=== PATIENT | female | born 1980 | race African-American/Black ===

== ENCOUNTER 2016-12-14 07:08 | Emergency (ER) | payer OTHER, MEDICAID ==
[~2016-12-14] VITALS: Ht 165.1 cm; Wt 60.0 kg
[~2016-12-14 07:08] MED LIST: CIPR500T2 PO; Z.0.NO CURRENT MEDS
[2016-12-14 07:14] VITALS: BP 120/76; PULSE 60; RESP 16; TEMP 98.8; O2SAT 99
--- NOTE | 2016-12-14 08:22 | PD ---
HPI Chief Complaint: GI Complaint Time Seen by Provider: 08:06 Travel History International Travel<30 days: No Contact w/Intl Traveler<30days: No Traveled to known affect area: No History of Present Illness HPI This is a 36-year-old female who presents to the emergency department with 3 days of nausea and vomiting, constant, moderate severity associated with some lightheadedness and dizziness when she walks. She says she could be but she says on Sunday she had what she thought was her menstrual cycle and has been spotting since. She has a little bit of pressure in her lower abdomen. She denies any dysuria, diarrhea, fevers or chills. She's not been around anyone else sick. [facility] Past Medical History Medical History: Denies Significant Hx Influenza Vaccination: No ?: Unknown LMP: SPOTTING NOW Past Surgical History Surgical History: No Previous Surgery Social History Alcohol Use: Yes (OCCASIONAL) Tobacco Use: No Substance Use: Yes (MARIJUANA) Allergies-Medications (Allergen,Severity, Reaction): Coded Allergies: No Known Allergies (Verified , 12/14/16) Reported Meds & Prescriptions Reported Meds & Active Scripts Active Review of Systems Except as stated in HPI: all other systems reviewed are Neg Physical Exam Narrative GENERAL:Well appearing, no acute distress SKIN: Focused skin assessment warm and dry. HEAD: Atraumatic. Normocephalic. EYES: Pupils equal and round. No injection or drainage. ENT: Moist mucous membranes NECK: Trachea midline. CARDIOVASCULAR: Regular rate and rhythm. No murmur appreciated. RESPIRATORY: Clear to auscultation. Breath sounds equal bilaterally. GASTROINTESTINAL: Abdomen soft, mildly tender to palpation in the lower abdomen with no rebound/guarding. MUSCULOSKELETAL: No obvious deformities. NEUROLOGICAL: Awake and alert. No obvious cranial nerve deficits. Moving all extremities. PSYCHIATRIC: Appropriate mood and affect; insight and judgment normal. Data Data Last Documented VS Vital Signs Date Time Temp Pulse Resp B/P (MAP) Pulse Ox O2 Delivery O2 Flow Rate FiO2 12/14/16 07:14 98.8 60 16 120/76 (91) 99 Room Air Orders Orders Complete Blood Count With Diff (12/14/16 08:16) Comprehensive Metabolic Panel (12/14/16 08:16) ^ Insert Iv (12/14/16 08:16) Beta Hcg (Quant/Titer) (12/14/16 08:16) Urinalysis - C+S If Indicated (12/14/16 08:16) Ondansetron Inj (Zofran Inj) (12/14/16 08:30) Sodium Chlor 0.9% 1000 Ml Inj (Ns 1000 M (12/14/16 08:30) Urine Culture (12/14/16 08:10) Us Pelvis (Ques Pr/Ect)W Trans (12/14/16 ) Labs Laboratory Tests Test 12/14/16 08:10 12/14/16 08:20 Urine Collection Type CLEAN CATCH Urine Color YELLOW Urine Turbidity SLIGHT Urine pH 6.0 Urine Specific [place] 1.028 Urine Protein 30 mg/dL Urine Glucose (UA) NEG mg/dL Urine Ketones 80 OR GREATER mg/dL Urine Occult Blood LARGE Urine Nitrite NEG Urine Bilirubin NEG Urine Leukocyte Esterase TRACE Urine RBC 15-19 /hpf Urine WBC 3-5 /hpf Urine Squamous Epithelial Cells > 8 /hpf Urine Bacteria MANY /hpf Microscopic Urinalysis Comment CULTURE INDICATED Urine Collection Time 08:10 White Blood Count 6.7 TH/MM3 Red Blood Count 3.90 MIL/MM3 Hemoglobin 12.0 GM/DL Hematocrit 36.4 % Mean Corpuscular Volume 93.3 FL Mean Corpuscular Hemoglobin 30.8 PG Mean Corpuscular Hemoglobin Concent 33.0 % Red Cell Distribution Width 12.4 % Platelet Count 152 TH/MM3 Mean Platelet Volume 9.4 FL Neutrophils (%) (Auto) 50.9 % Lymphocytes (%) (Auto) 36.7 % Monocytes (%) (Auto) 9.4 % Eosinophils (%) (Auto) 1.4 % Basophils (%) (Auto) 1.6 % Neutrophils # (Auto) 3.5 TH/MM3 Lymphocytes # (Auto) 2.4 TH/MM3 Monocytes # (Auto) 0.6 TH/MM3 Eosinophils # (Auto) 0.1 TH/MM3 Basophils # (Auto) 0.1 TH/MM3 CBC Comment DIFF FINAL Differential Comment Blood Urea Nitrogen 11 MG/DL Creatinine 0.88 MG/DL Random Glucose 89 MG/DL Total Protein 8.1 GM/DL Albumin 4.0 GM/DL Calcium Level 8.8 MG/DL Alkaline Phosphatase 50 U/L Aspartate Amino Transf (AST/SGOT) 13 U/L Alanine Aminotransferase (ALT/SGPT) 11 U/L Total Bilirubin 1.5 MG/DL Sodium Level 137 MEQ/L Potassium Level 3.0 MEQ/L Chloride Level 104 MEQ/L Carbon Dioxide Level 22.1 MEQ/L Anion Gap 11 MEQ/L Estimat Glomerular Filtration Rate 89 ML/MIN Human Chorionic Gonadotropin, Quant 58731 MIU/ML MDM Medical Decision Making Medical Screen Exam Complete: Yes Emergency Medical Condition: Yes Interpretation(s) afebrile, no tachycardia, normotensive no leukocytosis mild hypokalemia total bilirubin 1.5 likely normal in the setting of hcg 48720 Last 24 hours Impressions Pelvis Ultrasound 12/14/16 0000 Signed Impressions: Service Date/Time: November 08:25 - CONCLUSION: 1. Single early intrauterine corresponding to an approximate 5 weeks six-day menstrual age. No heartbeat could be identified despite repeated imaging. 2. Complex cyst in left ovary most consistent with a corpus luteal cyst. Nicola Henderson MD Differential Diagnosis , ectopic , threatened miscarriage, incomplete miscarriage, complete miscarriage, gastritis, pancreatitis, appendicitis Narrative Course This is a 36-year-old female who presents to the emergency department with nausea and vomiting. She had vaginal bleeding 2 days ago and has had spotting since. She was placed on a monitor and an IV was established. Labs are obtained which demonstrate some hypokalemia and elevated total bilirubin which is likely normal in . HCG is 24,000. A pelvic ultrasound was obtained which demonstrates an intrauterine with no heart rate of about 5 weeks 6 days. Blood type was drawn. Patient has insurance through the [employer]. I recommended that she follow-up with them. If she has trouble asked her to return to the emergency department in a week for repeat ultrasound. She was also given information regarding [facility]. Diagnosis Primary Impression: Threatened miscarriage Patient Instructions: General Instructions Additional Instructions: You have been diagnosed with a threatened miscarriage. If you develop severe abdominal pain, fever, persistent vomiting or inability to eat, heavy vaginal bleeding using more than one pad an hour, lightheadedness , dizziness, chest pain or shortness of breath return to the emergency department immediately. Followup with your automotive designer as soon as possible. Take Tylenol as needed for pain. Follow up with [facility] at: Follow up with: [facility] [address] [facility] [place] [address] Office Hours Sunday - 9:00 am - 5:30 pm Sunday 8:00 am - 12:00 pm Tuesdays 4:00 - 6:30 pm Med/Other Pt SpecificInfo: Prescription(s) given Scripts Ondansetron Odt (Zofran Odt) 4 Mg Tab 4 MG SL Q6HR Y for Nausea/Vomiting, #15 TAB 0 Refills Prov: Eboni Moise MD 12/14/16 Disposition: 01 DISCHARGE HOME Condition: Stable Eboni Moise MD Dec 14, 2016 08:22
[2016-12-14] MEDS ORDERED: ONDANSETRON HCL 4 MG/2 ML VIAL IV PUSH ONE (08:30)
[2016-12-14] MEDS ORDERED: SODIUM CHLOR 0.9% 1000 ML INJ 1,000 ML IV ONE (08:30)
[2016-12-14 08:32] LABS: BLOOD, URINE LARGE (NEG); GLUCOSE,URINE NEG (NEG); KETONE, URINE 80 OR GREATER mg/dL (NEG); NITRITE,URINE NEG (NEG)
[2016-12-14 08:35] LABS: AUTOMATED NEUTROPHIL # 3.5 TH/MM3 (1.8-7.7); BASOPHIL # 0.1 TH/MM3 (0-0.2); BASOPHIL % 1.6 % (0.0-2.0); EOSINOPHIL # 0.1 TH/MM3 (0-0.4); EOSINOPHIL % 1.4 % (0.0-4.0); HEMATOCRIT 36.4 % (35.0-46.0); HEMO FLAGS DIFF FINAL; LYMPH % 36.7 % (9.0-44.0); LYMPHOCYTE # 2.4 TH/MM3 (1.0-4.8); MEAN CELL VOLUME 93.3 FL (80.0-100.0); MEAN CORPUSCULAR HEMOGLOBIN 30.8 PG (27.0-34.0); MONO % 9.4 % (0.0-8.0); NEUT % 50.9 % (16.0-70.0); PLATELET COUNT 152 TH/MM3 (150-450); RED CELL DISTRIBUTION WIDTH 12.4 % (11.6-17.2); WHITE BLOOD COUNT 6.7 TH/MM3 (4.0-11.0)
[2016-12-14 08:42] LABS: CHLORIDE 104 MEQ/L (98-107); SODIUM (NA) 137 MEQ/L (136-145)
[2016-12-14 08:45] LABS: ANION GAP 11 MEQ/L (5-15); BICARBONATE 22.1 MEQ/L (21.0-32.0); BLOOD UREA NITROGEN 11 MG/DL (7-18)
[2016-12-14 08:47] LABS: METHOD OF COLLECTION CLEAN CATCH; URINE COLOR YELLOW (YELLW/STRAW)
[2016-12-14 08:48] LABS: ALT (GPT) 11 U/L (10-53); AST (GOT) 13 U/L (15-37)
[2016-12-14 08:48] LABS: RBC, URINE 15-19 /hpf (0-3)
[2016-12-14 08:49] LABS: BACTERIA, URINE MANY /hpf; COMMENT (UR) CULTURE INDICATED; CULTURE IF INDICATED CULTURE INDICATED; SQUAMOUS EPITHELIAL CELL URINE > 8 /hpf (0-5)
[2016-12-14 08:49] LABS: GLOMERULAR FILTRATION RATE 89 ML/MIN (>89)
[2016-12-14 08:50] LABS: TOTAL BILIRUBIN ADULT 1.5 MG/DL (0.2-1.0)
[2016-12-14 08:51] LABS: ALKALINE PHOSPHATASE 50 U/L (45-117)
[2016-12-14 09:07] LABS: BETA HCG QUANT 24965 MIU/ML (0-5)
--- NOTE | 2016-12-14 09:34 | RADRPT ---
EXAM DATE/TIME: 12/14/2016 08:25 [facility] COMPARISON: No previous studies available for comparison. INDICATIONS : Vaginal bleeding. LAB(S): Beta-hC,965 MEDICAL HISTORY : . SURGICAL HISTORY : None. ENCOUNTER: Initial ACUITY: 1 day PAIN SCORE: 3/10 LOCATION: Bilateral pelvis MEASUREMENTS: UTERUS: 8.8 x 4.5 x 6.8 cm ENDOMETRIAL STRIPE: 11 mm RIGHT OVARY: 2.5 x 2.0 x 2.4 cm LEFT OVARY: 3.1 x 2.9 x 3.0 cm FREE FLUID: Yes cul-de-sac. CROWN RUMP LENGTH: 0.3 cm = 5 WKS 6 DAYS FHR: Unable to visualize. BPM FINDINGS: UTERUS: There is a single early intrauterine present. The crown rump length corresponds to approxim ately 5 weeks six-day menstrual age. No heartbeat could be identified despite repeated imaging. The gestational sac appeared mildly irregular. RIGHT OVARY: Ovary contains no mass or significant cystic lesion. LEFT OVARY: There is a hypoechoic cystic lesion measuring 1.9 x 2 x 2.8 cm. MISCELLANEOUS: Minimal fluid is present in the cul-de-sac. CONCLUSION: 1. Single early intrauterine corresponding to an approximate 5 weeks six-day menstrual age. No heartbeat could be identified despite repeated imaging. 2. Complex cyst in left ovary most consistent with a corpus luteal cyst. Nicola Henderson MD on December 14, 2016 at 9:29 Board Certified Radiologist. This report was verified electronically.
[2016-12-14] MEDS ORDERED: ZOFR4TAB3 SL (10:06)
[2016-12-14 10:18] VITALS: BP 110/60; PULSE 78; RESP 18; O2SAT 99
== END 2016-12-14 10:26 | disposition home or self-care (01) ==
LOC: PHED 07:08
DX: O20.0 Threatened abortion (principal); R11.2 Nausea with vomiting, unspecified; R42 Dizziness and giddiness; E87.6 Hypokalemia; R82.99 Other abnormal findings in urine; B96.20 Unspecified Escherichia coli [E. coli] as the cause of diseases classified elsewhere; Z3A.01 Less than 8 weeks gestation of pregnancy
CPT/HCPCS: 76700; 76817; 80053; 81001; 84702; 85025; 86850; 86900; 86901; 87077; 87086; 87186; 96374; 99285; J2405; J7030

== ENCOUNTER 2016-12-30 03:25 | Emergency (ER) | payer OTHER, MEDICAID ==
[~2016-12-30] VITALS: Ht 162.6 cm; Wt 60.2 kg
[~2016-12-30 03:25] MED LIST changes: -CIPR500T2 PO; -Z.0.NO CURRENT MEDS; +ZOFR4TAB3 SL
[2016-12-30 03:46] VITALS: BP 127/89; PULSE 85; RESP 16; TEMP 98.9; O2SAT 100
[2016-12-30] MEDS ORDERED: PROM25TA10 PO (03:59)
[2016-12-30 04:20] VITALS: BP 113/76; PULSE 79; RESP 16; O2SAT 100
--- NOTE | 2016-12-30 04:53 | PD ---
HPI Chief Complaint: GI Complaint Time Seen by Provider: 04:48 Travel History International Travel<30 days: No Contact w/Intl Traveler<30days: No Traveled to known affect area: No History of Present Illness HPI The patient is a 36-year-old female that came in because of vomiting. Sometimes she vomits bright red clots. She is G2, P1, A0 and has not yet made an appointment with an drop forge hand. She is been twice here at this hospital during the and once at [facility]. She was prescribed Phenergan for the nausea but this is not working for her. On her previous she did well with Zofran. She states she has Zofran ODT but this is not working. She denies any syncopal or near syncopal spells. She denies any flank pain, fever, dysuria or urgency. She had an ultrasound here 2 weeks ago which showed a 6 week intrauterine . She also had another ultrasound at [facility]. [facility] Past Medical History Diminished Hearing: No Immunizations Current: No Tetanus Vaccination: Never Vaccinated Influenza Vaccination: No ?: LMP: JULY 2016 IRREGULAR PERIODS : 2 Para: 1 Past Surgical History Other Surgery: Yes (LEEP, BREAST AUGMENTATION) Social History Alcohol Use: No Tobacco Use: No Substance Use: Yes (MARIJUANA HELPS WITH APPETITE/NAUSEA) Allergies-Medications (Allergen,Severity, Reaction): Coded Allergies: No Known Allergies (Verified , 12/30/16) Reported Meds & Prescriptions Reported Meds & Active Scripts Active Zofran (Ondansetron HCl) 8 Mg Tab 8 Mg PO TID Reported Phenergan (Promethazine HCl) 25 Mg Tablet 25 Mg PO Q6H PRN Review of Systems Except as stated in HPI: all other systems reviewed are Neg Physical Exam Narrative GENERAL: The patient is slightly dehydrated, alert, oriented 3 and slight apparent distress with her nausea. Her vital signs are normal for . Her vomitus has a few flecks of coffee-ground appearing material but is otherwise clear. SKIN: Focused skin assessment warm/dry. HEAD: Atraumatic. Normocephalic. EYES: Pupils equal and round. No scleral icterus. No injection or drainage. ENT: No nasal bleeding or discharge. Mucous membranes pink but slightly dry. NECK: Trachea midline. No JVD. CARDIOVASCULAR: Regular rate and rhythm. No murmur appreciated. RESPIRATORY: No accessory muscle use. Clear to auscultation. Breath sounds equal bilaterally. GASTROINTESTINAL: Abdomen soft, with slight tenderness to direct palpation in the midline epigastrium, nondistended. Hepatic and splenic margins not palpable. MUSCULOSKELETAL: No obvious deformities. No clubbing. No cyanosis. No edema. NEUROLOGICAL: Awake and alert. No obvious cranial nerve deficits. Motor grossly within normal limits. Normal speech. PSYCHIATRIC: Appropriate mood and affect; insight and judgment normal. GENITOURINARY: Normal external genitalia without lesions or erythema. Vaginal vault without blood and there is a pure white drainage. Cervical os was closed without drainage. No cervical motion tenderness. Uterus nontender and approximately 8 weeks enlarged. Bilateral adnexa nontender without masses. Data Data Last Documented VS Vital Signs Date Time Temp Pulse Resp B/P (MAP) Pulse Ox O2 Delivery O2 Flow Rate FiO2 12/30/16 05:20 79 16 105/52 (69) 100 Room Air 12/30/16 03:46 98.9 Orders Orders Ondansetron Inj (Zofran Inj) (12/30/16 05:00) Sodium Chlor 0.9% 1000 Ml Inj (Ns 1000 M (12/30/16 05:00) Beta Hcg (Quant/Titer) (12/30/16 04:54) Complete Blood Count With Diff (12/30/16 04:54) Basic Metabolic Panel (Bmp) (12/30/16 04:54) Urinalysis - C+S If Indicated (12/30/16 04:54) Ondansetron Inj (Zofran Inj) (12/30/16 06:00) Urine Culture (12/30/16 05:40) Ceftriaxone Inj (Rocephin Inj) (12/30/16 06:30) Labs Laboratory Tests Test 12/30/16 05:15 12/30/16 05:40 White Blood Count 8.2 TH/MM3 Red Blood Count 3.76 MIL/MM3 Hemoglobin 11.9 GM/DL Hematocrit 34.8 % Mean Corpuscular Volume 92.7 FL Mean Corpuscular Hemoglobin 31.7 PG Mean Corpuscular Hemoglobin Concent 34.2 % Red Cell Distribution Width 12.4 % Platelet Count 175 TH/MM3 Mean Platelet Volume 9.7 FL Neutrophils (%) (Auto) 54.0 % Lymphocytes (%) (Auto) 35.3 % Monocytes (%) (Auto) 8.6 % Eosinophils (%) (Auto) 1.4 % Basophils (%) (Auto) 0.7 % Neutrophils # (Auto) 4.4 TH/MM3 Lymphocytes # (Auto) 2.9 TH/MM3 Monocytes # (Auto) 0.7 TH/MM3 Eosinophils # (Auto) 0.1 TH/MM3 Basophils # (Auto) 0.1 TH/MM3 CBC Comment DIFF FINAL Differential Comment Blood Urea Nitrogen 12 MG/DL Creatinine 0.72 MG/DL Random Glucose 81 MG/DL Calcium Level 8.5 MG/DL Sodium Level 138 MEQ/L Potassium Level 3.5 MEQ/L Chloride Level 105 MEQ/L Carbon Dioxide Level 24.1 MEQ/L Anion Gap 9 MEQ/L Estimat Glomerular Filtration Rate 112 ML/MIN Human Chorionic Gonadotropin, Quant 653187 MIU/ML Urine Color YELLOW Urine Turbidity CLOUDY Urine pH 7.5 Urine Specific [place] 1.031 Urine Protein 30 mg/dL Urine Glucose (UA) NEG mg/dL Urine Ketones TRACE mg/dL Urine Occult Blood TRACE Urine Nitrite POS Urine Bilirubin NEG Urine Leukocyte Esterase NEG Urine RBC 0-2 /hpf Urine WBC 6-8 /hpf Urine Squamous Epithelial Cells 0-5 /hpf Urine Bacteria MANY /hpf Microscopic Urinalysis Comment CULTURE INDICATED MDM Medical Decision Making Medical Screen Exam Complete: Yes Emergency Medical Condition: Yes Medical Record Reviewed: Yes Interpretation(s) The CBC shows a hematocrit of 34.8 but is otherwise unremarkable. The basic metabolic profile is normal. The beta-hCG is 139,586. The urine shows cloudy turbidity, specific gravity 1.031 with trace ketones, 30 protein and trace occult blood and positive nitrite and 6-8 white cells with many bacteria and culture is indicated. Differential Diagnosis Dehydration, electrolyte disorder, pancreatitis-highly unlikely, threatened AB, hyperemesis gravidarum, threatened AB Narrative Course The patient has hyperemesis gravidarum. She is slightly dehydrated. She also appears to have a urinary tract infection. She has no flank tenderness present. She will be given Keflex 500 mg 3 times daily for 10 days. She does not appear to have a threatened AB. Her beta titer is normal for 8 weeks . Diagnosis Primary Impression: Hyperemesis gravidarum Additional Instructions: Take the Zofran regularly, 1 tablet 3 times daily. The Keflex is also one tablet 3 times daily. Increase your liquid intake and follow-up with an drop forge hand. Med/Other Pt SpecificInfo: Prescription(s) given Scripts Cephalexin (Keflex) 500 Mg Capsule 500 MG PO TID for Infection for 10 Days, CAP 0 Refills Prov: Dandre Marion MD 12/30/16 Ondansetron (Zofran) 8 Mg Tab 8 MG PO TID for Nausea/Vomiting, #30 TAB 0 Refills Prov: Dandre Marion MD 12/30/16 Disposition: 01 DISCHARGE HOME Condition: Stable Dandre Marion MD Dec 30, 2016 04:53
[2016-12-30] MEDS ORDERED: ONDANSETRON HCL 4 MG/2 ML VIAL IV ONE ×2 (05:00→06:00)
[2016-12-30] MEDS: SODIUM CHLOR 0.9% 1000 ML INJ 1,000 ML IV SCH ×2 (05:08→05:49)
[2016-12-30 05:20] VITALS: BP 105/52; PULSE 79; RESP 16; O2SAT 100
[2016-12-30 05:26] LABS: AUTOMATED NEUTROPHIL # 4.4 TH/MM3 (1.8-7.7); BASOPHIL # 0.1 TH/MM3 (0-0.2); BASOPHIL % 0.7 % (0.0-2.0); EOSINOPHIL # 0.1 TH/MM3 (0-0.4); EOSINOPHIL % 1.4 % (0.0-4.0); HEMATOCRIT 34.8 % (35.0-46.0); HEMO FLAGS DIFF FINAL; LYMPH % 35.3 % (9.0-44.0); LYMPHOCYTE # 2.9 TH/MM3 (1.0-4.8); MEAN CELL VOLUME 92.7 FL (80.0-100.0); MEAN CORPUSCULAR HEMOGLOBIN 31.7 PG (27.0-34.0); MEAN CORPUSCULAR HGB CONC 34.2 % (32.0-36.0); MONO % 8.6 % (0.0-8.0); PLATELET COUNT 175 TH/MM3 (150-450); RED BLOOD COUNT 3.76 MIL/MM3 (4.00-5.30); RED CELL DISTRIBUTION WIDTH 12.4 % (11.6-17.2); WHITE BLOOD COUNT 8.2 TH/MM3 (4.0-11.0)
[2016-12-30 05:31] LABS: POTASSIUM 3.5 MEQ/L (3.5-5.1)
[2016-12-30 05:34] LABS: BICARBONATE 24.1 MEQ/L (21.0-32.0)
[2016-12-30 05:56] LABS: BLOOD, URINE TRACE (NEG); GLUCOSE,URINE NEG (NEG); KETONE, URINE TRACE mg/dL (NEG); NITRITE,URINE POS (NEG); PH, URINE 7.5 (5.0-8.5)
[2016-12-30] MEDS ORDERED: ZOFR8TAB PO (06:02)
[2016-12-30 06:06] LABS: URINE COLOR YELLOW (YELLW/STRAW)
[2016-12-30 06:07] LABS: BACTERIA, URINE MANY /hpf; COMMENT (UR) CULTURE INDICATED; CULTURE IF INDICATED CULTURE INDICATED; RBC, URINE 0-2 /hpf (0-3); SQUAMOUS EPITHELIAL CELL URINE 0-5 /hpf (0-5)
[2016-12-30] MEDS ORDERED: CEPH-460 PO (06:19)
[2016-12-30 06:20] VITALS: BP 112/74; PULSE 87; RESP 16; O2SAT 100
[2016-12-30] MEDS ORDERED: cefTRIAXone INJ 1,000 MG in SODIUM CHLORIDE 0.9% INJ 100 ML IV ONE (06:30)
[2016-12-30 07:13] VITALS: BP 128/83; PULSE 71; RESP 16; O2SAT 100
[2016-12-30 07:43] VITALS: BP 111/70
== END 2016-12-30 07:47 | disposition home or self-care (01) ==
LOC: PHED 03:25
DX: O21.0 Mild hyperemesis gravidarum (principal); K92.0 Hematemesis; O23.41 Unspecified infection of urinary tract in pregnancy, first trimester; B96.20 Unspecified Escherichia coli [E. coli] as the cause of diseases classified elsewhere; Z3A.08 8 weeks gestation of pregnancy
CPT/HCPCS: 80048; 81001; 84702; 85025; 87077; 87086; 87186; 96361; 96365; 96375; 96376; 99284; J0696; J2405; J7030

== ENCOUNTER 2017-08-06 03:06 | Inpatient (IN) | payer MEDICAID, OTHER ==
[~2017-08-06] VITALS: Ht 162.6 cm; Wt 74.0 kg
[2017-08-06] VITALS (11 sets, daily range): BP systolic 120–149; BP diastolic 65–77; PULSE 69–104; RESP 18–22; TEMP 98.2–98.5; O2SAT 96
[~2017-08-06 03:06] MED LIST changes: +CEPH-460 PO; +PROM25TA10 PO; -ZOFR4TAB3 SL; +ZOFR8TAB PO
[2017-08-06] MEDS ORDERED: LIDOCAINE HCL 1% PF 30 ML VIAL ONE (03:53)
[2017-08-06] MEDS ORDERED: ONDANSETRON HCL 4 MG/2 ML VIAL IV PUSH PRN (04:00)
[2017-08-06] MEDS ORDERED: CITRIC ACID-SODIUM CITRATE LIQ 30 ML UDC PO SCH (04:00)
[2017-08-06] MEDS ORDERED: NS 1000 ML IV PRN (04:00)
[2017-08-06] MEDS ORDERED: NS 500 ML BOLUS IV PRN (04:00)
[2017-08-06] MEDS ORDERED: LIDOCAINE HCL 1% 50 ML VIAL I-DERMAL PRN (04:00)
[2017-08-06] MEDS ORDERED: OXYTOCIN 30 UNITS 500ML PREMIX IV ONE (04:00)
[2017-08-06] MEDS ORDERED: LACTATED RINGER'S 1000 ML BOLUS IV PRN (04:00)
[2017-08-06] MEDS ORDERED: LIDOCAINE HCL 1% 50 ML VIAL INFIL PRN (04:00)
[2017-08-06] MEDS ORDERED: MINERAL OIL 10 ML VIAL TOPICAL PRN (04:00)
[2017-08-06] MEDS ORDERED: LACTATED RINGER'S 1000 ML IV SCH (04:00)
[2017-08-06 04:01] LABS: AUTOMATED NEUTROPHIL # 5.5 TH/MM3 (1.8-7.7); BASOPHIL % 0.5 % (0.0-2.0); EOSINOPHIL # 0.1 TH/MM3 (0-0.4); EOSINOPHIL % 1.1 % (0.0-4.0); HEMATOCRIT 30.7 % (35.0-46.0); HEMOGLOBIN 10.1 GM/DL (11.6-15.3); LYMPHOCYTE # 3.4 TH/MM3 (1.0-4.8); MEAN CELL VOLUME 85.1 FL (80.0-100.0); MEAN CORPUSCULAR HGB CONC 32.8 % (32.0-36.0); MEAN PLATELET VOLUME 9.3 FL (7.0-11.0); MONO % 9.6 % (0.0-8.0); MONOCYTE # 0.9 TH/MM3 (0-0.9); NEUT % 54.8 % (16.0-70.0); PLATELET COUNT 291 TH/MM3 (150-450); RED CELL DISTRIBUTION WIDTH 16.2 % (11.6-17.2); WHITE BLOOD COUNT 9.9 TH/MM3 (4.0-11.0)
--- NOTE | 2017-08-06 04:15 | HHI.HP ---
History & Physical H&P HPI Chief Complaint ctxs Date Seen: Aug 06, 2017 Time Seen: 04:07 Travel History International Travel<30 Days: No Contact w/Intl Traveler<30Days: No Known Affected Area: No History of Present Illness HPI pt. is a 37 y/o @ 39 5/7 weeks present w/ c/o ctxs. pt. states contractions thruout the day that increased in freq and intensity. +FM, no lof/ vb. pt. cervix checked and 9100/0. Weeks Gestation: 39 Para: 1 : 2 History (Limited) History Past Medical History Medical History: Denies Significant Hx Obstetric History Obstetric History , s/p x 1 Past Surgical History Surgical History: No Previous Surgery Family History Family History: Negative Social History Alcohol Use: No Tobacco Use: No Substance Abuse: No Allergies-Medications Allergies-Medications (Allergen,Severity, Reaction): Coded Allergies: sulfamethoxazole (Verified Allergy, Severe, Rash, 08/06/17) trimethoprim (Verified Allergy, Severe, Rash, 08/06/17) Home Meds Discontinued Reported Medications Promethazine (Phenergan) 25 Mg Tablet, 25 MG PO Q6H Y for NAUSEA OR VOMITING, TAB 0 Refills 12/30/16 Discontinued Scripts Cephalexin (Keflex) 500 Mg Capsule, 500 MG PO TID for Infection for 10 Days, CAP 0 Refills Prov:Dandre Marion MD 12/30/16 Ondansetron (Zofran) 8 Mg Tab, 8 MG PO TID for Nausea/Vomiting, #30 TAB 0 Refills Prov:Dandre Marion MD 12/30/16 ROS Review of Systems Except as stated in HPI: all other systems reviewed are Neg Physical Exam Physical Exam Narrative GENERAL: Well-nourished, well-developed patient. SKIN: Warm and dry. HEAD: Normocephalic and atraumatic. EYES: No scleral icterus. No injection or drainage. ENT: No nasal drainage noted. Mucous membranes pink. Airway patent. NECK: Supple, trachea midline. No JVD. CARDIOVASCULAR: Regular rate and rhythm without murmurs, gallops, or rubs. RESPIRATORY: Breath sounds equal bilaterally. No accessory muscle use. ABDOMEN/GI: Abdomen soft, non-tender, bowel sounds present, no rebound, no guarding Gravid GENITOURINARY: External Genitalia: intact and normal in appearance Cervix: ant Dilatation: 9 Effacement: 100 Station: 0 Presentation: cephalic Membranes: srom Uterine Contractions: q 2 min FHT's: Category: 1 Reactive: + Variability: mod EXTREMITIES: No cyanosis or edema. BACK: Nontender without obvious deformity. No CVA tenderness. NEUROLOGICAL: Awake and alert. Motor and sensory grossly within normal limits. Five out of 5 muscle strength in all muscle groups. Normal speech. Data Data Data Vital Signs Reviewed: Yes Orders Orders Ob (2e) Additional Admit Info (08/06/17 03:33) Add Patient To Providers List (08/06/17 ) Admit To Inpatient (08/06/17 ) Vital Signs (Adult) .Per protocol (08/06/17 03:48) Activity Oob Ad [place] (08/06/17 03:48) Heart (08/06/17 03:48) Amnioinfusion (08/06/17 03:48) Urinary Catheter Management .ONCE (08/06/17 03:48) Diet Liquid (08/06/17 Breakfast) Complete Blood Count With Diff (08/06/17 03:48) Hold Clot (08/06/17 03:48) Abo/Rh Blood Type (08/06/17 03:48) Urinalysis - C+S If Indicated (08/06/17 03:48) Ob/Psych Drug Screen, Urine (08/06/17 03:48) Resp Oxygen Non Rebreathe Mask (08/06/17 ) ^ Epidural / Intrathecal Infus (08/06/17 03:48) Lactated Ringer's 1000 Ml Inj (Lr 1000 M (08/06/17 04:00) Lactated Ringer's 1000 Ml Inj (Lr 1000 M (08/06/17 04:00) Sodium Chlorid 0.9% 500 Ml Inj (Ns 500 M (08/06/17 04:00) Sodium Chlor 0.9% 1000 Ml Inj (Ns 1000 M (08/06/17 04:00) Lidocaine 1% Inj (50 Ml) (Xylocaine 1% I (08/06/17 04:00) Citric Acid-Sodium Citrate Liq (Bicitra (08/06/17 04:00) Ondansetron Inj (Zofran Inj) (08/06/17 04:00) Fentanyl Inj (Fentanyl Inj) (08/06/17 04:00) Fentanyl Inj (Fentanyl Inj) (08/06/17 04:00) Oxytocin 30 Units-500ml Premix (Pitocin (08/06/17 04:00) Lidocaine 1% Inj (50 Ml) (Xylocaine 1% I (08/06/17 04:00) Light Mineral Oil (Muri-Lube Oil) (08/06/17 04:00) Lidocaine Pf 1% Inj (Xylocaine-Mpf 1% In (08/06/17 03:53) Group B Strep: Negative Labs Laboratory Tests Test 08/06/17 03:45 White Blood Count 9.9 Red Blood Count 3.60 Hemoglobin 10.1 Hematocrit 30.7 Mean Corpuscular Volume 85.1 Mean Corpuscular Hemoglobin 28.0 Mean Corpuscular Hemoglobin Concent 32.8 Red Cell Distribution Width 16.2 Platelet Count 291 Mean Platelet Volume 9.3 Neutrophils (%) (Auto) 54.8 Lymphocytes (%) (Auto) 34.0 Monocytes (%) (Auto) 9.6 Eosinophils (%) (Auto) 1.1 Basophils (%) (Auto) 0.5 Neutrophils # (Auto) 5.5 Lymphocytes # (Auto) 3.4 Monocytes # (Auto) 0.9 Eosinophils # (Auto) 0.1 Basophils # (Auto) 0.0 CBC Comment DIFF FINAL Differential Comment [facility] MDM Medical Record Reviewed: Yes Plan pt. in active labor. condition d/w pt. pt. to be admitted. efm/ toco, fht reassuring. fentanyl for analgesia. will continue to follow expectsvd. Diagnosis Diagnosis: Primary Impression: Uterine contractions during Additional Impression: 39 weeks gestation of Fernando Yepez Jr., MD Aug 06, 2017 04:15
[2017-08-06] MEDS ORDERED: IBUP-232 PO (04:39)
--- NOTE | 2017-08-06 04:40 | HHI.DCPOC ---
Discharge Care Plan Diagnosis: (1) Normal vaginal delivery (2) 39 weeks gestation of (3) Uterine contractions during Your Health Problems Are: Vaginal delivery Report Symptoms to Your Doctor -Temperature above 100.5 degrees -Redness, of incision or excessive or foul smelling drainage -Unusual pain or calf pain -Increased vaginal bleeding -Painful or difficulty urinating -Feelings of extreme sadness or anxiety after 2 weeks Goals to Promote Your Health * To prevent worsening of your condition and complications * To maintain your health at the optimal level Directions to Meet Your Goals Take your medications as prescribed Follow your dietary instruction Follow activity as directed Ensure plenty of rest for recovery Drink fluids for hydration Keep your appointments as scheduled Take your immunizations and boosters as scheduled If your symptoms worsen call your PCP, if no PCP go to Urgent Care Center or Emergency Room Smoking is Dangerous to Your Health. Avoid second hand smoke Call the 24-hour crisis hotline for domestic abuse at Zacarias Mayo MD Aug 06, 2017 04:40
[2017-08-06] MEDS: IBUPROFEN 800 MG TAB PO PRN ×2 (04:45→19:22)
[2017-08-06] MEDS ORDERED: oxyCODONE/ACETAMINOPHEN 5 MG/325 MG TAB PO PRN (04:45)
[2017-08-06] MEDS ORDERED: BENZOCAINE 20% TOPICAL SPRAY 60 ML CAN TOPICAL PRN (04:45)
[2017-08-06] MEDS ORDERED: SODIUM CHLORIDE 0.9% FLUSH 10 ML FLUSH IV FLUSH PRN (04:45)
[2017-08-06] MEDS ORDERED: OXYTOCIN 30 UNITS-500ML PREMIX 500 ML IV SCH (04:45)
[2017-08-06] MEDS ORDERED: ALUMINUM/MAGNESIUM/SIMETH 30 ML CUP PO PRN (04:45)
[2017-08-06] MEDS ORDERED: ONDANSETRON ODT 4 MG TAB PO PRN (04:45)
[2017-08-06] MEDS ORDERED: WITCH HAZEL 50%/GLYCERIN 12.5% 40 PAD JAR TOPICAL PRN (04:45)
[2017-08-06] MEDS ORDERED: ZOLPIDEM TARTRATE 5 MG TAB PO PRN (04:45)
[2017-08-06] MEDS ORDERED: DOCUSATE SODIUM 50 MG/SENNA 8.6 MG TAB PO PRN (04:45)
[2017-08-06] MEDS ORDERED: ACETAMINOPHEN 325 MG TAB PO PRN (04:45)
--- NOTE | 2017-08-06 04:50 | PD.OB.DELI ---
Weeks gestation: 39 Pt started active labor?: Yes Artificial rupture of membrane: No Anesthesia: None, Lidocaine local to perineum (12cc of 1% lidocaine w/o epinephrine) Episiotomy: None Vaginal Delivery: Normal, Spontaneous Presentation: Vertex Infant: Female Delivery date: Aug 06, 2017 Delivery time: 03:54 One Minute : 8 Five Minute : 9 Placenta: Spontaneous delivery, Intact, 3 vessel cord Laceration: 2 deg Repair: Vicryl running Estimated blood loss: 300 Additional Information Diagnoses: 1. intrauterine at 39 weeks and 5 days 2. Advanced maternal age 3. Missing raytec sponge Antibiotics: None required Description of procedure: I wrote to the delivery room within 30 minutes of receiving a phone call the patient's presentation to the hospital, upon my arrival Dr. Yepez the OB hospitalist delivered the and was in the process of injecting local anesthesia to the perineum, he stated he used 5 cc, please see his separate note for documentation of the delivery details, the patient and the were no distress, from this point I took over the care of the patient. Pitocin was bolused and with fundal massage the placenta was delivered, there is minimal uterine bleeding and uterus was firm. The perineum, vagina and cervix were inspected and found to have a second-degree laceration, I injected an additional 12-15 cc of 1% lidocaine and repaired as above. The patient tolerated the procedure well and was left in the birthing suite with her . Nursing is stated to me that the count was incorrect, there was one missing Ray-Beto, I am fairly certain I do not place any in the vagina however given the care provided by Dr. Yepez without my supervision prior to my arrival plan will be to proceed with abdominal x-ray to rule out retained object. Zacarias Mayo MD Aug 06, 2017 04:50
--- NOTE | 2017-08-06 04:53 | HHI.PR ---
SOFTWARE PROJECT ENGINEER Note Note On review of patient's vital signs, she has had some mild range blood pressures since her arrival, she denies any history of elevated blood pressure during this or outside of , this is likely secondary to pain, however will continue to observe, at this time she denies any signs or symptoms of preeclampsia. Zacarias Mayo MD Aug 06, 2017 04:53
[2017-08-06] MEDS: oxyCODONE/ACETAMINOPHEN 5 MG/325 MG TAB PO PRN ×3 (05:22→19:23)
--- NOTE | 2017-08-06 05:23 | RADRPT ---
EXAM DATE/TIME: 08/06/2017 04:52 [facility] COMPARISON: US PELVIS (QUEST PREG/ECTOPIC) W/TRANSVAG, December 14, 2016, 8:25. INDICATIONS : Incorrect lap count post vaginal delivery, possible foreign body. MEDICAL HISTORY : None. SURGICAL HISTORY : None. ENCOUNTER: Initial ACUITY: 1 day PAIN SCORE: 10/10 LOCATION: Bilateral lower quadrant FINDINGS: Supine view of the abdomen was performed. The abdominal bowel gas pattern is mild ileus. No abnorma l masses, calcifications, or organomegaly is seen. The osseous structures are unremarkable. CONCLUSION: 1. No radiopaque foreign bodies identified. Ileus. Ankur Garcia MD on August 06, 2017 at 5:21 Board Certified Radiologist. This report was verified electronically.
[2017-08-06] MEDS ORDERED: DIPHTH/TETANUS/ACEL PERTUSSIS (BOOSTER) 0.5 ML VIAL/PFS IM ONE (16:00)
[2017-08-06] MEDS ORDERED: MEASLES, MUMPS, RUBELLA VACCINE 0.5 ML VIAL SQ ONE (16:00)
[2017-08-06] MEDS: SODIUM CHLORIDE 0.9% FLUSH 10 ML FLUSH IV FLUSH SCH (21:00)
[2017-08-07 07:50] VITALS: BP 110/60; PULSE 85; RESP 16; TEMP 98.2
[2017-08-07] MEDS ORDERED: OXYC1TAB63 PO (08:29)
[2017-08-07] MEDS: SODIUM CHLORIDE 0.9% FLUSH 10 ML FLUSH IV FLUSH SCH ×2 (09:05→19:52)
--- NOTE | 2017-08-07 10:40 | HHI.OB ---
Subjective Post Day: 1 Objective Vitals/I&O Vital Signs Date Time Temp Pulse Resp B/P (MAP) Pulse Ox O2 Delivery O2 Flow Rate FiO2 08/07/17 07:50 85 16 110/60 (77) 08/07/17 07:50 98.2 08/06/17 19:59 98.2 80 18 124/75 (91) Objective Remarks GENERAL: Well-nourished, well-developed patient. CARDIOVASCULAR: Regular rate and rhythm without murmurs, gallops, or rubs. RESPIRATORY: Breath sounds equal bilaterally. No accessory muscle use. ABDOMEN/GI: Abdomen soft, non-tender. Fundus: Firm, non-tender at umbilicus. GENITOURINARY: Light to moderate bleeding. EXTREMITIES: No cyanosis or edema, non-tender, without signs of DVT. Medications and IVs Current Medications Medications (Trade) Dose Ordered Sig/Eliazar Route Start Time Stop Time Status Last Admin Lactated Ringer's 1,000 ml @ 3,000 mls/hr BOLUS PRN IV 08/06/17 04:00 Sodium Chloride 500 ml @ 1,000 mls/hr BOLUS PRN IV 08/06/17 04:00 (Zofran Inj) 4 mg Q6H PRN IV PUSH 08/06/17 04:00 (Muri-Lube Oil) 10 ml UNSCH PRN TOPICAL 08/06/17 04:00 (NS Flush) 2 ml BID IV FLUSH 08/06/17 09:00 (NS Flush) 2 ml UNSCH PRN IV FLUSH 08/06/17 04:45 (Tylenol) 650 mg Q4H PRN PO 08/06/17 04:45 (Motrin) 800 mg Q8H PRN PO 08/06/17 04:45 08/06/17 19:22 (Percocet 5-325 Mg) 1 tab Q4H PRN PO 08/06/17 04:45 08/06/17 19:23 (Percocet 5-325 Mg) 2 tab Q4H PRN PO 08/06/17 04:45 (Americaine 20% Top Spr) 1 spray Q4H PRN TOPICAL 08/06/17 04:45 (Tucks Pads) 1 applic QID PRN TOPICAL 08/06/17 04:45 (Ramya-Colace) 2 tab Q12H PRN PO 08/06/17 04:45 (Ambien) 5 mg HS PRN PO 08/06/17 04:45 (Mag-Al Plus Susp Liq) 15 ml Q8H PRN PO 08/06/17 04:45 (Zofran Odt) 4 mg Q6H PRN PO 08/06/17 04:45 Assessment/Plan Problem List: (1) Normal vaginal delivery ICD Codes: O80 - Encounter for full-term uncomplicated delivery (2) Anemia ICD Codes: D64.9 - Anemia, unspecified Assessment and Plan pt doing well pt well managed with oral pain medication bonding well with , at this time will start oral iron daily routine care Discharge Planning dc home today Opal Franco Aug 07, 2017 10:40
--- NOTE | 2017-08-07 10:43 | HHI.DS ---
Admission Date Aug 06, 2017 at 03:33 Discharge Date: Aug 07, 2017 Admitting Diagnosis term labor Diagnosis: (1) Anemia ICD Codes: D64.9 - Anemia, unspecified (2) Normal vaginal delivery ICD Codes: O80 - Encounter for full-term uncomplicated delivery Delivery Date: Aug 06, 2017 : Female Brief History pt. is a 37 y/o @ 39 5/7 weeks present w/ c/o ctxs. pt. states contractions thruout the day that increased in freq and intensity. +FM, no lof/ vb. pt. cervix checked and 9/100/0. plan for delivery Hospital Course routine care Pt Condition on Discharge: Good Discharge Disposition: Discharge Home Discharge Instructions Diet Instructions: As Tolerated, No Restrictions Additional Diet Instructions: Drink at least 8 - 16 oz bottles of water a day Activities You Can Perform: Shower Only-No Bath, Sitz Bath Activities to Avoid: Lifting/Bending, Sexual Activity Additional Activity Instruc.: No driving until off pain medications Do not lift anything heavier than your baby in an carrier Follow up Referrals: [facility] - 2 Weeks @ [facility] with Adrian Drew MD New Medications: Ibuprofen (Ibuprofen) 600 Mg Tab 600 MG PO Q6H PRN for PAIN, #30 TAB 1 Refill Oxycodone HCl/Acetaminophen (Oxycodone-Acetaminophen 5-325) 5 Mg-325 Mg Tablet 1-2 TAB PO Q4H PRN for moderate pain, #15 TAB Opal Franco Aug 07, 2017 10:42
[2017-08-07] MEDS: IBUPROFEN 800 MG TAB PO PRN (15:13)
[2017-08-07] MEDS: oxyCODONE/ACETAMINOPHEN 5 MG/325 MG TAB PO PRN (15:14)
[2017-08-07 19:57] VITALS: BP 130/69; PULSE 76; RESP 18; TEMP 98
[2017-08-08] MEDS: IBUPROFEN 800 MG TAB PO PRN (04:23)
[2017-08-08] MEDS: oxyCODONE/ACETAMINOPHEN 5 MG/325 MG TAB PO PRN (04:23)
--- NOTE | 2017-08-08 07:40 | HHI.OB ---
Subjective Post Day: 2 Remarks PPD#2; S/P , stable, Objective Vitals/I&O Vital Signs Date Time Temp Pulse Resp B/P (MAP) Pulse Ox O2 Delivery O2 Flow Rate FiO2 08/07/17 19:57 98.0 76 18 130/69 (89) 08/07/17 07:50 85 16 110/60 (77) 08/07/17 07:50 98.2 Objective Remarks GENERAL: Well-nourished, well-developed patient. CARDIOVASCULAR: Regular rate and rhythm without murmurs, gallops, or rubs. RESPIRATORY: Breath sounds equal bilaterally. No accessory muscle use. ABDOMEN/GI: Abdomen soft, non-tender. Fundus: Firm, non-tender at umbilicus. GENITOURINARY: Light to moderate bleeding. EXTREMITIES: No cyanosis or edema, non-tender, without signs of DVT. Medications and IVs Current Medications Medications (Trade) Dose Ordered Sig/Eliazar Route Start Time Stop Time Status Last Admin Lactated Ringer's 1,000 ml @ 3,000 mls/hr BOLUS PRN IV 08/06/17 04:00 Sodium Chloride 500 ml @ 1,000 mls/hr BOLUS PRN IV 08/06/17 04:00 (Zofran Inj) 4 mg Q6H PRN IV PUSH 08/06/17 04:00 (Muri-Lube Oil) 10 ml UNSCH PRN TOPICAL 08/06/17 04:00 (NS Flush) 2 ml BID IV FLUSH 08/06/17 09:00 (NS Flush) 2 ml UNSCH PRN IV FLUSH 08/06/17 04:45 (Tylenol) 650 mg Q4H PRN PO 08/06/17 04:45 (Motrin) 800 mg Q8H PRN PO 08/06/17 04:45 08/08/17 04:23 (Percocet 5-325 Mg) 1 tab Q4H PRN PO 08/06/17 04:45 08/08/17 04:23 (Percocet 5-325 Mg) 2 tab Q4H PRN PO 08/06/17 04:45 (Americaine 20% Top Spr) 1 spray Q4H PRN TOPICAL 08/06/17 04:45 (Tucks Pads) 1 applic QID PRN TOPICAL 08/06/17 04:45 (Ramya-Colace) 2 tab Q12H PRN PO 08/06/17 04:45 08/08/17 04:23 (Ambien) 5 mg HS PRN PO 08/06/17 04:45 (Mag-Al Plus Susp Liq) 15 ml Q8H PRN PO 08/06/17 04:45 (Zofran Odt) 4 mg Q6H PRN PO 08/06/17 04:45 Assessment/Plan Problem List: (1) Normal vaginal delivery ICD Codes: O80 - Encounter for full-term uncomplicated delivery (2) Anemia ICD Codes: D64.9 - Anemia, unspecified Assessment and Plan pt doing well pt well managed with oral pain medication bonding well with infant, at this time will start oral iron daily routine care - PPD#2, Stable, plan discharge to home Discharge Planning dc home today Iam Collado MD Aug 08, 2017 07:40
[2017-08-08 08:00] VITALS: BP 123/72; PULSE 87; RESP 18; TEMP 98.1
[2017-08-08] MEDS: SODIUM CHLORIDE 0.9% FLUSH 10 ML FLUSH IV FLUSH SCH (09:10)
== END 2017-08-08 12:35 | disposition home or self-care (01) | DRG 775 ==
LOC: HOBED 03:06 → H2EA 03:33 → H1EA 06:15
PROVIDERS: ADMIT Obstetrics & Gynecology; ATTEND Obstetrics & Gynecology
PROC: 10E0XZZ Delivery of Products of Conception, External Approach (ICD-10-PCS; principal; 2017-08-06)
PROC: 0KQM0ZZ Repair Perineum Muscle, Open Approach (ICD-10-PCS; 2017-08-06)
DX: O70.1 Second degree perineal laceration during delivery (principal); Z37.0 Single live birth; D64.9 Anemia, unspecified; O99.02 Anemia complicating childbirth; Z3A.39 39 weeks gestation of pregnancy
CPT/HCPCS: 74018; 85025; 86900; 86901; 99283; J2590